=== PATIENT | female | born 1930 | race Caucasian/White ===

== ENCOUNTER 2016-12-12 12:14 | Inpatient (IN) | payer MEDICARE, BC ==
[~2016-12-12] VITALS: Ht 172.7 cm; Wt 72.6 kg
[~2016-12-12 12:14] MED LIST: BENADRYL INJ50 MG/ML PO; CALMOSEPTINE OI71 GM TOPICAL; CEPACOL SORE T1 EAC3 MM; CORDARONE200 MG PO; COUMADIN2 MG PO; COUMADIN5 MG PO; DENAVIR1.5 GM TP; DILAUD1MGAMP IV; DULCOLAX10 MG/SUPP RC; HYDROCODON-ACE1 EAC7 PO; LOVENOX40 MG/0.4 SQ; MIRALAX17 GM PO; NARCAN0.4 MG/ML IV; PHENERGAN25 MG/ML IM; POTASSIUM CHLOR8 ME1 PO; RESTORIL7.5 MG PO; SENOKOT-S TABLE1 TAB PO; SYNTHROID25 MCG PO; ULTRAM50 MG PO
[2016-12-12 13:22] LABS: BASOPHILS 0.1 % (0.0-2.0); EOSINOPHILS 0 % (0-7); HEMATOCRIT 30.9 % (36.0-48.0); HEMOGLOBIN 10.4 g/dL (12-16); IMMATURE GRANULOCYTES 0.4 % (0-5); LYMPHOCYTES 3.8 % (15-50); MCH 30.9 pg (26.0-34.0); MCHC 33.7 g/dL (31.0-37.0); MCV 91.7 fL (80.0-100.0); MEAN PLATELET VOLUME 10.6 fL (7.4-10.4); MONOCYTES 10.4 % (2-11); NEUTROPHILS 85.3 % (40-80); RBC 3.37 10x6/uL (4.00-5.40); WBC 9.4 10x3/uL (4.8-10.8)
[2016-12-12 13:24] LABS: PLATELET COUNT 254 10x3/uL (130-400)
[2016-12-12 13:35] LABS: ALBUMIN 2.4 g/dL (3.4-5.0); ANION GAP 10.6 mmol/L (8-16); BILIRUBIN - TOTAL 1.2 mg/dL (0.2-1.3); CALCIUM 8.3 mg/dL (8.5-10.1); CARBON DIOXIDE 26.7 mmol/L (21.0-32.0); POTASSIUM - SERUM 4.3 mmol/L (3.5-5.1); PROTEIN - SERUM 6.4 g/dL (6.4-8.2)
[2016-12-12 14:52] LABS: INR 3.18 (0.85-1.17); PROTIME 32.9 SECONDS (11.6-15.0)
--- NOTE | 2016-12-12 15:34 | NUR ---
Patient Name: ARTEMIO TAYLOR Admission Status: ER Accout number: [id number] Admission Date: 12-12-2016 : 1929 Admission Diagnosis: fall with fracture Attending: JEANA Current LOS: 1 Anticipated DC Date: 05/15/17 Planned Disposition: Rehab (lives alone, bedbound, cg's at time) Primary Insurance: MEDICARE A & B Discharge Planning Comments: CM met with patient to discuss dc plans/needs. Patient gave consent to complete assessment. Patient reports she is bed bound and lives at home with her son. Her son works and is not home all the time and sometimes not there. She reports she has caregivers (mother and daughter team) that comes to her home to assist her. She could not clearly tell cm when the cg's are there and how much she is left alone. She stated she is not able to stand on her own and wears a diaper until someone comes to change her. Patient clean with no odor. Appears to be well cared for. She did have a fall with a fracture. Unsure if she was home alone at the time. Asked patient and she could not understand my question. CM will continue to follow and assist as needed with dc plans/needs. Automatic Spinning Lathe Operator: Deidra Griffin Is the patient Alert and Oriented? Yes * How many steps to enter\exit or inside your home? 2 * PCP Dr. Wei - hasn't seen in a while according to the patient. * [facility] [address] * Preadmission Environment Home with Family * ADLs Partial Dependent * Partial ADLs (Assistance needed) Ambulation Bathing Dressing Toileting Transfers * Equipment Rolling Walker Wheelchair * Other Equipment Patient very hard of hearing. * List name and contact numbers for known caregivers / representatives who currently or will assist patient after discharge: Lonnie Taylor - son - [phone] * Community resources currently utilized [facility] * Please name any agencies selected above. Has caregivers over the weekend. Her son lives with her but works and is not always there. No clear answer on how often cg's come. Patient with difficulty understanding CM's questions. * Additional services required to return to the preadmission environment? Yes * Can the patient safely return to the preadmission environment? Yes * Has this patient been hospitalized within the prior 30 days at any hospital? No
[2016-12-12 19:42] LABS: APPEARANCE HAZY (CLEAR); BILIRUBIN NEGATIVE (NEGATIVE); COLOR DK YELLOW (YELLOW); GLUCOSE NEGATIVE (NEGATIVE); KETONE NEGATIVE (NEGATIVE); LEUKOCYTE ESTERASE 1+ (NEGATIVE); NITRITE NEGATIVE (NEGATIVE); PROTEIN NEGATIVE (NEGATIVE); UROBILINOGEN NORMAL (NORMAL)
[2016-12-12 19:49] LABS: AMORPHOUS SEDIMENT <1+ /lpf (NONE SEEN); BACTERIA MANY /hpf (NONE SEEN); GRANULAR CAST OCC /lpf (NONE SEEN); HYALINE CAST 0-5 /lpf (NONE SEEN); MUCUS >1+ /lpf (NONE SEEN); WHITE CELLS - URINE >50 /hpf (0-5)
--- NOTE | 2016-12-12 19:55 | NUR ---
RECIEVED PATIENT TO FLOOR, STARTED IV FLUIDS PER ORDERS GAVE MORPHINE ORDERED. INSERTED STRANGE USING STERILE PROCEDURE, SHANTANU URINE RETURN. WILL CONTINUE TO MONITOR. NO SIGNS OF DISTRESS
[2016-12-12 20:00] VITALS: BP 132/69
--- NOTE | 2016-12-12 20:15 | NUR ---
ASSESSMENT PER ADMIT PACKET IV PATENT RT ARM SALINE LOCK PT TO HAVE CT SCAN. MULTIPLE BRUISES AND SKIN TEARS NOTED ON BODY FX RT TIBIA. 4+ EDEMA TO BOTH LOWER EXTREMITIES. TO RADIOLOGY PER BED FOR CT SCAN. O2 ON 2L/M PER NC.STRANGE TO BS DRAINAGE WITH SHANTANU COLORED UA NOTED.
--- NOTE | 2016-12-12 21:00 | NUR ---
RETURNED TO ROOM POST CT SCAN. IV FLUIDS OF NS AT 75CC'S/HR CONNECTED TO IV SITE. PT REPOSITIONED IN BED PT CONFUSED AND TRYING TO PULL GOWN OFF AND O2 OFF. ATTEMPT TO RE ORIENT PT TO PLACE AND SURROUNDINGS.
--- NOTE | 2016-12-12 22:00 | NUR ---
MEDS GIVEN PER MAR.
[2016-12-12 22:02] VITALS: BP 118/93; BMI 24.3
[2016-12-12 22:11] VITALS: BP 106/62
--- NOTE | 2016-12-13 | NUR ---
EYES CLOSED RESPIRATIONS WITH EASE AND UNLABORED.
[2016-12-13 02:59] VITALS: BP 96/47
--- NOTE | 2016-12-13 04:45 | NUR ---
EYES CLOSED RESPIRATIONS WITH EASE AND UNLABORED.
[2016-12-13 06:14] LABS: BASOPHILS 0.1 % (0.0-2.0); EOSINOPHILS 0 % (0-7); IMMATURE GRANULOCYTES 0.3 % (0-5); LYMPHOCYTES 7.4 % (15-50); MCH 31.7 pg (26.0-34.0); MCHC 34.6 g/dL (31.0-37.0); MCV 91.7 fL (80.0-100.0); MEAN PLATELET VOLUME 10.4 fL (7.4-10.4); MONOCYTES 15.3 % (2-11); NEUTROPHILS 76.9 % (40-80); RDW 16.2 % (11.5-14.5); WBC 7.9 10x3/uL (4.8-10.8)
[2016-12-13 06:20] LABS: HEMATOCRIT 23.1 % (36.0-48.0); PLATELET COUNT 142 10x3/uL (130-400); RBC 2.52 10x6/uL (4.00-5.40)
[2016-12-13 06:27] LABS: PROTIME 38.1 SECONDS (11.6-15.0)
[2016-12-13 06:28] LABS: INR 3.82 (0.85-1.17)
[2016-12-13 06:44] LABS: ANION GAP 10.8 mmol/L (8-16); CALCIUM 7.6 mg/dL (8.5-10.1); CREATININE - SERUM 1.2 mg/dL (0.6-1.3); POTASSIUM - SERUM 4.8 mmol/L (3.5-5.1)
--- NOTE | 2016-12-13 07:40 | NUR ---
REPORT RECEIVED. CALL LIGHT IN REACH.
--- NOTE | 2016-12-13 08:02 | NUR ---
PATIENT IN BED WITH EYES OPEN NO COMPLAINTS AT THIS TIME. IV INTACT. CALL LIGHT WITHIN REACH.
--- NOTE | 2016-12-13 08:05 | NUR ---
ASSESSMENT COMPLETED. BED ALARM ON. CALL LIGHT IN REACH. WILL CONTINUE WITH PLAN OF CARE.
[2016-12-13 08:42] VITALS: BP 110/55
--- NOTE | 2016-12-13 09:15 | NUR ---
TO OR VIA BED.
--- NOTE | 2016-12-13 10:22 | NUR ---
PT SPOKE TO SON PRIOR TO SURGERY TWICE. SON GAVE PERMISSION ON THE PHONE FOR THE SURGERY THEN SPOKE AT LENGTH TO DR. JOSE REGARDING THE PROCEEDURE AND EXPECTATIONS. STATED HE WOULD BE AT THE HOSPITAL IN A VERY SHORT TIME.
[2016-12-13 11:40] VITALS: BP 92/67
--- NOTE | 2016-12-13 11:40 | NUR ---
RECEIVED BACK TO ROOM 2232 FROM RECOVERY ROOM VIA BED. PRBC INFUSING. VSS. BED ALARM ON. CALL LIGHT IN REACH.
--- NOTE | 2016-12-13 13:05 | NUR ---
SON AT BEDSIDE. NO NEEDS VOICED AT THIS TIME. CALL LIGHT IN REACH.
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
--- NOTE | 2016-12-13 16:30 | NUR ---
RESTING WITH EYES CLOSED. RESP EVEN AND UNLABORED. CALL LIGHT IN REACH.
[2016-12-13 16:53] LABS: BASOPHILS 0.2 % (0.0-2.0); EOSINOPHILS 0 % (0-7); IMMATURE GRANULOCYTES 0.2 % (0-5); LYMPHOCYTES 6.2 % (15-50); MCH 31.4 pg (26.0-34.0); MCHC 34.4 g/dL (31.0-37.0); MCV 91.2 fL (80.0-100.0); MEAN PLATELET VOLUME 10.6 fL (7.4-10.4); MONOCYTES 12.2 % (2-11); NEUTROPHILS 81.2 % (40-80); PLATELET COUNT 157 10x3/uL (130-400); RDW 16.6 % (11.5-14.5)
[2016-12-13 16:55] LABS: HEMATOCRIT 30.2 % (36.0-48.0); HEMOGLOBIN 10.4 g/dL (12-16); RBC 3.31 10x6/uL (4.00-5.40); WBC 9.9 10x3/uL (4.8-10.8)
--- NOTE | 2016-12-13 19:40 | NUR ---
ASSESSMENT COMPLETED, EXTERNAL FIXATOR IN PLACE TO R LEG, WRAPPED WITH ELY, STRANGE DRAINING TO GRAVITY, NC IN PLACE, NO ACUTE DISTRESS NOTED, SON IN ROOM, SR'S UP, CL IN REACH, WILL MONITOR
[2016-12-13 20:30] VITALS: BP 113/63
--- NOTE | 2016-12-13 20:46 | NUR ---
PT RESTING WITH EYES CLOSED, AROUSED FOR CALMOSEPTINE APPLICATION, PT REFUSED, IMMEDIATELY WENT BACK TO SLEEP, RESTORIL HELD AT THIS TIME, FALL PRECAUTIONS IN PLACE, CL IN REACH, WILL MONITOR
--- NOTE | 2016-12-13 23:03 | NUR ---
CONTINUES TO REST WITH EYES CLOSED, RESP WITH EASE, NO ACUTE DISTRESS NOTED, FALL PRECAUTIONS IN PLACE, CL IN REACH, DOOR OPEN FOR EASY OBSERVATION
[2016-12-14 01:00] VITALS: BP 122/60
--- NOTE | 2016-12-14 03:15 | NUR ---
MORPHINE GIVEN PER JAN FOR R LEG PAIN, RODERICK WELL, WILL MONITOR
--- NOTE | 2016-12-14 03:40 | NUR ---
PT REPOSITIONED IN BED, LINEN AND GOWN CHANGED DUE TO BLOOD AND URINE SATURATION, STRANGE PLACEMENT CHECKED, URINE FLOWING IN TUBE, BALLOON WITH 10CC FLUID, PT UNCOOPERATIVE AND CONFUSED, ATTEMPTED REORIENTATION WITH NO SUCCESS,SAFETY MEASURES IN PLACE WILL MONITOR
[2016-12-14 05:30] VITALS: BP 101/50
--- NOTE | 2016-12-14 05:31 | NUR ---
REFUSED MEDICATION, PT VERY COMBATIVE AND CONFUSED, SON CONTACTED, STATES HE WILL BE HERE NO LATER THAN NOON TODAY, SAFETY PRECAUTIONS IN PLACE, CL IN REACH, WILL CONTINUE TO MONITOR
--- NOTE | 2016-12-14 08:00 | NUR ---
ASSESSMENT PER FLOW SHEET.PT WITHOUT DISTRESS.CALL LIGHT IN REACH
[2016-12-14 08:39] VITALS: BP 124/50
--- NOTE | 2016-12-14 10:00 | NUR ---
REPOSITIONED,PAD CHANGE UNDER LEFT LEG.BLEEDING NOTED.ICE PACKS PLACED ON EACH SIDE OF LEG.FALL PRECAUTIONS IN PLACE.MONITOR
--- NOTE | 2016-12-14 12:30 | NUR ---
EATING LUNCH WITHOUT DISTRESS
[2016-12-14 12:48] VITALS: BP 88/53
[2016-12-14 14:14] LABS: INR 2.73 (0.85-1.17); PROTIME 29.1 SECONDS (11.6-15.0)
[2016-12-14 15:39] VITALS: Ht 172.7 cm; Wt 72.6 kg
--- NOTE | 2016-12-14 16:01 | NUR ---
CM REASSESSMENT NOTE: CM CALLED PATIENTS SON (MARY) REGARDING D/C NEEDS AND PLANS. MARY STATED HE LIVES WITH HIS MOTHER AND SHE IS CURRENT WITH [employer] [facility], HOUSE CALLS, AND HAS PRIVATE CAREGIVERS 3 DAYS A WEEK. JENNIFER STATED HE WORKS [employer]RI[employer], AND SUN AND THAT IS WHEN THE CAREGIVERS ARE WITH HER. THEY GIVE HER A BATH AT THAT TIME PER SON. CM WILL CONTINUE TO FOLLOW PATIENT WITH D/C NEEDS AND PLANS.
[2016-12-14 16:46] VITALS: BP 147/75
--- NOTE | 2016-12-14 17:02 | NUR ---
RESTING BETTER THIS AFTERNOON.MONITOR
--- NOTE | 2016-12-14 19:50 | NUR ---
ASSESSMENT COMPLETED, NO ACUTE DISTRESS NOTED, EXTERNAL FIXATOR IN PLACE TO R LEG, SR'S UP, BED ALARM ON , CL IN REACH, DOOR OPEN FOR EASY MONITORING,
--- NOTE | 2016-12-14 20:34 | NUR ---
MEDS GIVEN PER MAR, RODERICK WELL, SAFETY PRECAUTIONS IN PLACE, CL IN REACH
[2016-12-14 23:00] VITALS: BP 103/49
--- NOTE | 2016-12-14 23:39 | NUR ---
LYING IN BED AWAKE, NO ACUTE DISTRESS NOTED, SAFETY MEASURES IN PLACE, WILL CONTINUE TO MONITOR
[2016-12-15 00:23] VITALS: BP 114/55
[2016-12-15 03:00] VITALS: BP 93/53
--- NOTE | 2016-12-15 03:14 | NUR ---
FLUIDS HUNG PER MAR, RODERICK WELL, NO DISTRESS NOTED, SAFETY MEASURES IN PLACE
[2016-12-15 05:11] LABS: BASOPHILS 0.1 % (0.0-2.0); EOSINOPHILS 0.4 % (0-7); HEMATOCRIT 30.6 % (36.0-48.0); HEMOGLOBIN 10.5 g/dL (12-16); IMMATURE GRANULOCYTES 0.3 % (0-5); LYMPHOCYTES 6.1 % (15-50); MCH 31.3 pg (26.0-34.0); MCHC 34.3 g/dL (31.0-37.0); MCV 91.1 fL (80.0-100.0); MEAN PLATELET VOLUME 10.5 fL (7.4-10.4); MONOCYTES 9.6 % (2-11); NEUTROPHILS 83.5 % (40-80); PLATELET COUNT 185 10x3/uL (130-400); RBC 3.36 10x6/uL (4.00-5.40); RDW 15.9 % (11.5-14.5); WBC 11.2 10x3/uL (4.8-10.8)
[2016-12-15 05:34] LABS: PROTIME 24.3 SECONDS (11.6-15.0)
[2016-12-15 05:41] LABS: ANION GAP 9.4 mmol/L (8-16); CALCIUM 7.7 mg/dL (8.5-10.1); CARBON DIOXIDE 24.7 mmol/L (21.0-32.0); CREATININE - SERUM 1.4 mg/dL (0.6-1.3); POTASSIUM - SERUM 4.1 mmol/L (3.5-5.1)
[2016-12-15 05:42] LABS: INR 2.18 (0.85-1.17)
[2016-12-15 08:41] VITALS: BP 85/50
--- NOTE | 2016-12-15 09:30 | NUR ---
ASSESSMENT PER FLOW SHEET.PT WITHOUT DISTRESS.SOME BLOOD NOTED ON DRESSING TO RIGHT LEG.PT WITHOUT DISTRESS.MONITOR
[2016-12-15 12:31] VITALS: BP 88/51
[2016-12-15 16:27] VITALS: BP 104/55
--- NOTE | 2016-12-15 18:20 | NUR ---
HAS RESTED THROUGHOUT DAY.SHE HAS CONTINUED TO HAVE SMALL AMOUNTS OF BLOOD ON DRESSING.SHE IS NOW EATING DINNER FOR SON.SHE REMAINS WITHOUT CHANGE.CONT PLAN OF CARE
--- NOTE | 2016-12-15 18:35 | NUR ---
CONSENTS TO CHART ORDERED.HER SON JARRELL ROJAS AGREES TO SURGERY
--- NOTE | 2016-12-15 20:00 | NUR ---
ASSESSMENT COMPLETED, NO ACUTE DISTRESS NOTED, FIXATOR IN PLACE TO R LEG, SAFETY PRECAUTIONS IN PLACE, WILL MONITOR
--- NOTE | 2016-12-15 21:11 | NUR ---
MEDS GIVEN PER MAR, RODERICK WELL, SAFETY PRECAUTIONS IN PLACE, CL IN PLACE, WILL MONITOR
[2016-12-15 21:14] VITALS: BP 112/61
--- NOTE | 2016-12-15 23:20 | NUR ---
FLUIDS HUNG PER MAR, RODERICK WELL, WILL CONTINUE TO MONITOR
[2016-12-16] VITALS (15 sets, daily range): BP systolic 72–99; BP diastolic 39–80
--- NOTE | 2016-12-16 01:53 | NUR ---
SITTING UP IN BED PLAYING WITH GOWN, NO ACUTE DISTRESS NOTED, SAFETY MEASURES IN PLACE
--- NOTE | 2016-12-16 03:50 | NUR ---
PT CONTINUES TO BE AWAKE, NO DISTRESS NOTED, WILL CONTINUE TO MONITOR
[2016-12-16 06:08] LABS: BASOPHILS 0.1 % (0.0-2.0); EOSINOPHILS 0.6 % (0-7); HEMOGLOBIN 10.2 g/dL (12-16); IMMATURE GRANULOCYTES 0.2 % (0-5); LYMPHOCYTES 6.1 % (15-50); MCH 31.1 pg (26.0-34.0); MCV 91.5 fL (80.0-100.0); MEAN PLATELET VOLUME 10.9 fL (7.4-10.4); MONOCYTES 11.3 % (2-11); NEUTROPHILS 81.7 % (40-80); PLATELET COUNT 199 10x3/uL (130-400); RBC 3.28 10x6/uL (4.00-5.40); RDW 15.8 % (11.5-14.5); WBC 9.7 10x3/uL (4.8-10.8)
--- NOTE | 2016-12-16 06:08 | NUR ---
PT TAKEN TO SURGERY VIA STRETCHER
[2016-12-16 06:19] LABS: INR 2.03 (0.85-1.17)
[2016-12-16 06:21] LABS: ANION GAP 12.3 mmol/L (8-16); CALCIUM 8.1 mg/dL (8.5-10.1); CARBON DIOXIDE 21.6 mmol/L (21.0-32.0); CREATININE - SERUM 1.2 mg/dL (0.6-1.3); POTASSIUM - SERUM 3.9 mmol/L (3.5-5.1)
--- NOTE | 2016-12-16 07:00 | OP ---
PATIENT NAME: ARTEMIO RICH MEDICAL RECORD: [id number] :29 LOCATION:[id number] ADMISSION DATE:12/12/16 SURGEON: IRVING RANGEL MD DATE OF OPERATION: 12/13/2016 PREOPERATIVE DIAGNOSES: 1. Comminuted proximal tibia fracture. 2. Compartment syndrome. POSTOPERATIVE DIAGNOSES: 1. Comminuted proximal tibia fracture. 2. Compartment syndrome. PROCEDURE PERFORMED: Right lower extremity ex-fixator spanning from the femur to the tibia using Sergio's Karolyn II system and then fasciotomy. SURGEON: John Rangel MD ANESTHESIA: General. CONDITION: She tolerated the procedure well and was transferred to the recovery room in stable condition. INDICATIONS: This is an 86-year-old female that apparently fell yesterday, presented to the Emergency Room, had a significant proximal tibia fracture. She also has had Coumadin on board with significantly high INR. She was admitted by Dr. Long, evaluated and felt that she needed to come to the operating room for ex-fix and fasciotomies. At arrival to the operating room, the patient refused treatment of the physician. I was called emergently to come in. I had very little opportunity to speak with the patient as she did give some history. I did speak with her son on the phone discussing the risks of this including the risk that she had a relatively high risk for an amputation of this leg. Also, discussed the significant risks associated with this having the elevated INR and the Coumadin on board. Additionally, of note, I did speak with Dr. Garza for further opinion in light of the fact that I was brought into this at such a late juncture. OPERATIVE REPORT: The patient was taken to the operating room and placed in supine position. General anesthesia was obtained. She did receive Ancef per protocol. Once she was then prepped and draped, I made 2 small stab incisions in her distal thigh, 2 small stab incisions in her tibia and placed a spanning external fixator using the Karolyn II system by Sergio. I placed 2 apex pins proximally, 2 apex pins distally, 2 clamps with a straight posts on each side and then clamped this into position. This overall gave decent reduction to the fracture, although the fracture is bicondylar fracture significantly comminuted and a knee that is already significantly degenerative. Once this was accomplished, I then made small fasciotomies on each side of her leg; taking this down under the skin with my finger, as well as scissors and making sure that all 4 compartments were opened. They did not give the general appearance of being excessively tight. I did not want to make full fasciotomies as I was not under the impression in the operating room that the compartments were just at a super taut point. Therefore, I made a conservative fasciotomies. These were then packed with some 2 inch Kerlix, then a loose dressing was placed. She was awakened and transferred to the recovery room in stable condition. She had some heart concerns. We did not want to prolong the stay in the operating room. OPERATIVE REPORT [id number] ARTEMIO RICH TRANSINT:[id number] Voice Confirmation ID: [id number] DOCUMENT ID: [id number] IRVING RANGEL MD at 0700 CC: [id number] DICTATION DATE: 12/13/16 1048 INFECTION PREVENTION COORDINATOR: 12/13/16 1142 ADM IN [place] [id number] [place] [address]
--- NOTE | 2016-12-16 09:19 | NUR ---
125CC OF DARK YELLOW URINE IN BAG ON ADMIT TO RR
--- NOTE | 2016-12-16 09:59 | NUR ---
OK TO TRANSPORT TO FLOOR PER ANESTHESIA
--- NOTE | 2016-12-16 10:30 | NUR ---
BACK FROM OR VIA BED,DRESSING TO RIGHT STUMP CLEAN,DRY AND INTACT.SEE GRAPHICS FOR VITAL SIGNS.ASSESSMENT PER FLOW SHEET.MONITOR.SON AT SIDE
--- NOTE | 2016-12-16 11:01 | NUR ---
CALL TO RECOVERY,SPOKE WITH RADHA. WENDY... BP 74/45
--- NOTE | 2016-12-16 11:15 | NUR ---
ANESTHESIA TO SEE PT,ORDERS RECIEVED AND INITIATED
--- NOTE | 2016-12-16 13:26 | NUR ---
NUTRITION MONITORING & EVAL CHART REVIEWED, PT VISIT. REG DIET. POOR PO INTAKE EVEN WITH MANAGER PSYCHIATRY ASSIST/FEEDING AND ENCOURAGEMENT. DECLINES ENSURE AT THIS TIME. RD FOLLOWING
--- NOTE | 2016-12-16 14:12 | NUR ---
NUTRITION MONITORING & EVAL REVISITED PT. ASSISTED WITH ADDITIONAL PO INTAKE. PROVIDED PIE, ENSURE, APPLESAUCE, PUDDING. PT UNABLE TO CHEW REG FOODS. WILL CHANGE DIET TO PUREED WITH REG LIQUIDS. RD FOLLOWING
--- NOTE | 2016-12-16 15:20 | NUR ---
BP STAYING IN 90'S NOW.PT MORE ALERT AND TALKING WITH HER SON.PERIODS OF CONFUSION AT TIMES.MONITOR
--- NOTE | 2016-12-16 16:22 | NUR ---
PAGE TO RE.. BP STARTING TO GO LOWER 80/45,77/51,86/59
--- NOTE | 2016-12-16 16:25 | NUR ---
CALL TO OFFICE...RE LOW BP 77/51
--- NOTE | 2016-12-16 16:35 | NUR ---
ORDERS RECIEVED AND INITIATED PER
[2016-12-16 18:26] LABS: BASOPHILS 0.1 % (0.0-2.0); EOSINOPHILS 0.4 % (0-7); HEMATOCRIT 24.6 % (36.0-48.0); HEMOGLOBIN 8.3 g/dL (12-16); IMMATURE GRANULOCYTES 0.3 % (0-5); LYMPHOCYTES 6.7 % (15-50); MCH 31.4 pg (26.0-34.0); MCHC 33.7 g/dL (31.0-37.0); MCV 93.2 fL (80.0-100.0); MEAN PLATELET VOLUME 10.6 fL (7.4-10.4); MONOCYTES 9.9 % (2-11); NEUTROPHILS 82.6 % (40-80); PLATELET COUNT 162 10x3/uL (130-400); RBC 2.64 10x6/uL (4.00-5.40); WBC 7.8 10x3/uL (4.8-10.8)
--- NOTE | 2016-12-16 19:41 | NUR ---
REMAINS WITHOUT NEEDS,WITHOUT DISTRESS.CONT PLAN OF CARE
--- NOTE | 2016-12-16 23:11 | NUR ---
1ST UNIT OF PRBC INFUSING AT THIS TIME VITALS WILL BE MONITORED PT LAYING IN BED NO DISTRESS OBSERVED CALL LIGHTI NR EACH SRX2 BED LOW AND LOCKED LEFT HEEL BRIDGED AND TV IS ON WATER AND ICE PROVIDED TO PT AT PT REQUEST WILL MONITOR
--- NOTE | 2016-12-17 01:55 | NUR ---
PT RECIVED 20MG LASIX PER DR TORRES INBETWEEN UNITS OF PRBC PT TOLERATED 1ST UNIT WELL NO DISTRESS OBSERVED OR NOTED AT THIS TIME WILL MONITOR
--- NOTE | 2016-12-17 05:21 | NUR ---
PT RECIVED 2 UNITS PRBC THIS SHIFT AND PT C/O PAIN ADMIN PAIN MEDS ORDERED AND IVF RESTARTED TO IVP. PT APPERS TO BE CONFUSED AND TALKING ABOUT LEAVING THROUGH BACK DOOR AND THAT EVERYONE WILL BE GONE THIS AFTERNOON DRESSING TO RIGHT STUMP INTACT AND MINNIMAL DRAINAGE OBSERVED WILL MONITOR
[2016-12-17 05:36] LABS: BASOPHILS 0.1 % (0.0-2.0); EOSINOPHILS 0.3 % (0-7); HEMATOCRIT 32.3 % (36.0-48.0); IMMATURE GRANULOCYTES 0.2 % (0-5); LYMPHOCYTES 3.6 % (15-50); MCH 30.3 pg (26.0-34.0); MCHC 34.1 g/dL (31.0-37.0); MEAN PLATELET VOLUME 10.7 fL (7.4-10.4); MONOCYTES 12.4 % (2-11); NEUTROPHILS 83.4 % (40-80); PLATELET COUNT 160 10x3/uL (130-400); RBC 3.63 10x6/uL (4.00-5.40)
[2016-12-17 05:52] LABS: INR 1.94 (0.85-1.17); PROTIME 22.2 SECONDS (11.6-15.0)
[2016-12-17 05:56] LABS: ANION GAP 11.6 mmol/L (8-16); CALCIUM 7.8 mg/dL (8.5-10.1); CARBON DIOXIDE 23.3 mmol/L (21.0-32.0); CREATININE - SERUM 1.1 mg/dL (0.6-1.3); POTASSIUM - SERUM 3.9 mmol/L (3.5-5.1)
[2016-12-17 08:11] VITALS: BP 121/100
--- NOTE | 2016-12-17 08:27 | NUR ---
PT ASSESSMENT COMPLETE PT AWAKE AND CONFUSED YELLING OUT FOR NILSA AND REPEATING HER SONS PHONE NUMBER STATING PLEASE CALL [phone] TO R STUMP SURGICAL SITE. CALL LIGHT IN REACH SIDE RAILS UP X 2 BED ALARM ON
--- NOTE | 2016-12-17 10:49 | NUR ---
PT GIVEN NORCO PER ORDER PER COMPLAINT OF PAIN TO INCISION SITE PT REMAINS EXTREMLY CONFUSED AND REFSES TO EAT BREAKFAST SPOKE WITH SON BOB STATED HE WILL COME TO SEE PT THIS DAY
[2016-12-17 11:40] VITALS: BP 82/56
[2016-12-17 15:28] LABS: APPEARANCE CLEAR (CLEAR); BACTERIA FEW /hpf (NONE SEEN); BILIRUBIN NEGATIVE (NEGATIVE); COLOR YELLOW (YELLOW); EPITHELIAL CELLS 0-5 /hpf (0-5); GLUCOSE NEGATIVE (NEGATIVE); KETONE NEGATIVE (NEGATIVE); LEUKOCYTE ESTERASE TRACE (NEGATIVE); MUCUS <1+ /lpf (NONE SEEN); NITRITE NEGATIVE (NEGATIVE); PROTEIN NEGATIVE (NEGATIVE); RED CELLS - URINE 0-5 /hpf (0-5); UROBILINOGEN NORMAL (NORMAL); YEAST >1+ WITH HYPHAE /hpf (NONE SEEN)
[2016-12-17 16:13] VITALS: BP 99/57
--- NOTE | 2016-12-17 16:25 | NUR ---
PATIENT IN BED WITH IV INTACT. NO COMPLAINTS. FAMILY AT BEDSIDE. CALL LIGHT WITHIN REACH.
--- NOTE | 2016-12-17 17:30 | NUR ---
PT MORE ALERT THIS AFTERNOON WITH SON PRESENT CONFUSION IS LESS HAS SEVERE EXCORIATION NOTED TREATED WITH BUDREAUX BUTT PASTE.
[2016-12-17 21:00] VITALS: BP 135/73
[2016-12-18 00:30] VITALS: BP 104/59
[2016-12-18 05:00] VITALS: BP 92/63
[2016-12-18 05:53] LABS: BASOPHILS 0.1 % (0.0-2.0); EOSINOPHILS 0.9 % (0-7); HEMOGLOBIN 11.3 g/dL (12-16); IMMATURE GRANULOCYTES 0.2 % (0-5); LYMPHOCYTES 7.2 % (15-50); MCH 30.3 pg (26.0-34.0); MCHC 34.2 g/dL (31.0-37.0); MCV 88.5 fL (80.0-100.0); MEAN PLATELET VOLUME 10.7 fL (7.4-10.4); MONOCYTES 9.4 % (2-11); NEUTROPHILS 82.2 % (40-80); RBC 3.73 10x6/uL (4.00-5.40); RDW 18.4 % (11.5-14.5)
[2016-12-18 06:00] LABS: PLATELET COUNT 197 10x3/uL (130-400); WBC 12.3 10x3/uL (4.8-10.8)
[2016-12-18 06:25] LABS: CARBON DIOXIDE 22.2 mmol/L (21.0-32.0); CREATININE - SERUM 1.1 mg/dL (0.6-1.3); POTASSIUM - SERUM 4.2 mmol/L (3.5-5.1)
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
[2016-12-18 08:03] VITALS: BP 108/64
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
--- NOTE | 2016-12-18 10:20 | NUR ---
Rehab Note- Rehab Prescreen Order received. The patient is a new AKA, awaiting Physical therapy assessment for patient's PLOF. Will follow at this time. Thank you for this referral! Erma Ponce RN Clinical Liaison, Rehab Care/[facility]
--- NOTE | 2016-12-18 10:43 | NUR ---
STAGE TWO PRESSURE UCLER SEEN TO BUTTOCK/COCCYX AREA MEASURING 6CM X 8CM. MEPILEX APPLIED AND DATED. PT TURNED ON SIDE.
[2016-12-18 12:02] VITALS: BP 110/53
--- NOTE | 2016-12-18 12:17 | NUR ---
Rehab Prescreening Consult recieved and the patient was visited. According to the notes it says she is bed confined. The INTERPRETER TRANSLATOR at the bedside says she screams out with in pain with any movement and becomes combative. At this point she is not appropriate for inpatient rehab. The CM Krysten Abbasi has been made aware. Ngoc Lamar RN Clinical Liaison, Rehab
--- NOTE | 2016-12-18 12:21 | NUR ---
PT LAYING ON LEFT SIDE WITH EYES CLOSED RESTING. WILL CONTINUE TO MONITOR.
--- NOTE | 2016-12-18 12:32 | NUR ---
1000- 4X4 GUAZE PADS PLACED ON PTS LEFT LOWER LEG, WRAPPED WITH KERLIX AND SECURED WITH TAP.
[2016-12-18 16:14] VITALS: BP 108/65
--- NOTE | 2016-12-18 16:30 | NUR ---
PT IS VERY COMBATIVE AND AGGRESSIVE TOWARDS ME. PT IS STATED THAT THE BEDSIDE TABLE IS ON HER LEG AND ITS HURTING. INFORMED PT THAT THE BEDSIDE TABLE IS NO WHERE NEAR HER LEGS AND IS NOT TOUCHING HER. 1630- PAGED DR. TORRES, INFORMED HIM OF PT SITUAION. NEW ORDERS RECEIVED. WILL CONTINUE TO MONITOR.
--- NOTE | 2016-12-18 17:50 | NUR ---
PTS CAREGIVER IN ROOM WITH PT NOW. CAREGIVER STATED PT WAS TRYING TO HIT HER. PT KEEPS C/O NC NOT BEING IN PTS NOSE. ADJUSTED PTS NC AROUND EARS AND INFORMED PT THAT HER NC WAS IN HER NARES AND HER O2 WAS GOING AT 2L.
--- NOTE | 2016-12-18 17:51 | NUR ---
1730- MOUSTAPHA, PLUG CUTTING MACHINE OPERATOR IN ROOM WITH PT. MOUSTAPHA CALLED RESP TO SEE ABOUT PTS BREATHING AND MAYBE GETTING A OXIMIZER FOR MORE COMFORT. 1740- RESP INFORMED ME THAT PTS O2 SAT WAS GOOD AND NO INTERVENTION WAS NEEDED AT THIS TIME. WILL CONTINUE TO MONITOR.
--- NOTE | 2016-12-18 18:11 | NUR ---
PT SITTING UP IN BED TALKING TO CAREGIVER. CAREGIVER STATED TO ME THAT PTS SON WILL BE UP HERE SOMETIME TONIGHT (MAY BE LATE) TO SIT WITH HER. PTS CAREGIVER INFORMED ME THAT SHE NOTIFIED SON OF PT BEING COMBATIVE AND "NOT HER SELF". WILL CONTINUE TO MONITOR.
[2016-12-18 19:00] VITALS: BP 102/59
[2016-12-19 04:00] VITALS: BP 93/52
--- NOTE | 2016-12-19 04:13 | NUR ---
ASSESSED AT THE BEGINNNING OF THE SHIFT. SHE IS VERY CONFUSED AND AT TIMES SHE HAS BEEN COMBATIVE AND UNCOOPERATIVE. EARLY IN THE EVENING SHE RECEIVED HALDOL ORDERED PRN BUT IT DID NOT HAVE ANY EFFECT ON HER. SHE HAS A DRESSING TO HER RIGHT AKA AND ALSO TO HER LOWER LEFT LEG. SHE HAS NOT SLEPT BUT MAYBE 10 MINUTES DURING THE NIGHT. AT ABOUT 0145 HER SON CAME IN AFTER WORK AND HAS BEEN WITH HER SINCE THEN. HE STATED HE HAD TO WORK TODAY SO NOT SURE HOW LONG HE WILL STAY. SHE DID NOT KNOW HIM AT THE FIRST BUT THEN LATER KNEW WHO HE WAS. THE BED IS LOW, RAILS UP X'S 2 WITH A CALL LIGHT AT HAND AND BED ALARM IN PLACE.
[2016-12-19 06:07] LABS: BASOPHILS 0.2 % (0.0-2.0); EOSINOPHILS 0.9 % (0-7); HEMATOCRIT 32.4 % (36.0-48.0); IMMATURE GRANULOCYTES 0.4 % (0-5); LYMPHOCYTES 7.6 % (15-50); MCH 30.6 pg (26.0-34.0); MCV 90.3 fL (80.0-100.0); MEAN PLATELET VOLUME 11.1 fL (7.4-10.4); NEUTROPHILS 78.9 % (40-80); PLATELET COUNT 177 10x3/uL (130-400); RBC 3.59 10x6/uL (4.00-5.40); RDW 18.7 % (11.5-14.5)
[2016-12-19 06:30] LABS: ANION GAP 10.6 mmol/L (8-16); CALCIUM 7.6 mg/dL (8.5-10.1); CARBON DIOXIDE 22.6 mmol/L (21.0-32.0); CREATININE - SERUM 1.1 mg/dL (0.6-1.3); POTASSIUM - SERUM 4.2 mmol/L (3.5-5.1)
--- NOTE | 2016-12-19 07:00 | NUR ---
PT REC'D FROM CLAUDINE NUR. RESTING IN BED WITH EYES CLOSED. EASILY AROUSED. ALERT TO SELF ONLY. ATTEMPTS TO REORIENT UNSUCCESSFUL. DRESSING TO R STUMP HAS OLD DRY BLOOD ON IT. PT IS GRIMACING. WILL ADMINISTERED PAIN MEDS ORDERED. STRANGE CATHETER IN PLACE DRAINING CLEAR SHANTANU URINE TO GRAVITY. BED LOW, CALL LIGHT IN REACH, WILL CPOC.
[2016-12-19 08:55] VITALS: BP 126/67
--- NOTE | 2016-12-19 09:05 | NUR ---
MORNING MEDS PASSED. RECHECK OF FSBS READING 95. PT EATING BREAKFAST IN BED. PRN PAIN MEDICINE GIVEN PER PT GRIMACING AND STATING "IT HURTS." PT UNABLE TO GET A NUMBER ON NUMERICAL PAIN SCALE DUE TO PT CONFUSION. BED LOW, CALL LIGHT IN REACH, WILL CPOC.
--- NOTE | 2016-12-19 12:00 | NUR ---
PRN HALDOL ADMINISTERED PER AGGITATION DURING BED BATH.
--- NOTE | 2016-12-19 12:15 | NUR ---
FULL BED BATH AND LINEN CHANGE PROVIDED. DRESSING TO LLE CHANGED AND LEG ELEVATED. DRESSING TO COCCYX CDI. PT REPOSITIONED TO L SIDE. BED LOW, CALL LIGHT IN REACH, WILL CPOC.
[2016-12-19 13:04] VITALS: BP 134/83
--- NOTE | 2016-12-19 15:17 | NUR ---
LYING IN BED,WITHOUT DISTRESS.VISTOR AT BEDSIDE
[2016-12-19 16:03] VITALS: BP 123/72
[2016-12-19 20:38] VITALS: BP 114/70
--- NOTE | 2016-12-19 23:06 | NUR ---
PT ASSESSMENT COMPLETED PT LAYING IN BED PT APPERS TO BE CONFUSED TO PLACE, SITUATION, AND TIME. PT KEEPS STATING " I NEED TO GO TO [facility] AND BE THERE THEY NEED TO TAKE ME TO [facility] I HAVE A ROOM RESERVED THERE AND THAT IS WHERE I NEED TO BE NOT HERE AT [facility]" ATTEMPTED TO REORINAT PT TO PLACE AND PT DENIED BEING HERE AT [facility] PT INCREASINGLY BECAME ANXIOUS AND HALDOL ADMIN ORDERED WILL MONITOR PT AND ORINATE NEEDED BED LOW AND LOCKED CALL LIGHT IN REACH SRX2 BED ALARM ON AND WORKING
[2016-12-20] VITALS: BP 143/93
--- NOTE | 2016-12-20 01:21 | NUR ---
PT APPERS TO BE CONFUSED AT THIS TIME AND YELLING OUT PT REQUESTING ICE WATER AND WHEN PROVIDED TO PT PT POURS ICE WATER ON TO LAP. PT REORINATED TO SURROUNDINGS AND PT SEEMS TP CALM DOWN AND NOT YELL OUT WILL CONTINUE TO MONITOR PT AND ANXITY
[2016-12-20 04:00] VITALS: BP 112/65
--- NOTE | 2016-12-20 04:15 | NUR ---
PT LAYING IN BED APPERS TO BE SLEEPING AT THIS TIME RESPERATIONS EVEN AND UNLABORED WILL MONITOR
--- NOTE | 2016-12-20 07:05 | NUR ---
SLEEPING AT THIS TIME. POSITIONED ON LEFT SIDE WITH EYES CLOSED AND RESPIRATIONS EVEN AND NON LABORED. STRANGE PATENT AND DRAINING DARK, CONCENTRATED URINE TO GRAVITY. SCD OFF PER PT REFUSING. IV TO LEFT WRIST PATENT. BED ALARM ON AND IN WORKING ORDER. CALL LIGHT IN REACH, SRX2 WITH BED IN LOWEST POSITION AND WHEELS LOCKED. DOOR OPEN FOR PATIENT SAFETY. WILL CONTINUE WITH PLAN OF CARE.
[2016-12-20 09:00] VITALS: BP 114/62
--- NOTE | 2016-12-20 09:10 | NUR ---
SCHEDULED MEDICATIONS ADMINISTERED AT THIS TIME WELL PRN NORCO FOR PAIN. LINENS CHANGED AND CALMOSEPTINE CREAM APPLIED TO PT'S ABDOMINAL SKIN FOLD EXCORIATION AND BUTTOCK. HEART SHAPED MEPILEX APPLIED TO PT'S COCCYX. STRANGE CATHETER CARE PROVIDED WITH STRANGE CATHETER CARE WIPES. DRESSING TO LLE REMOVED D/T SOILAGE. LLE CLEANSED WITH NORMAL SALINE AND PAT DRY. ABD PADS X4 TO LLE AND WRAPPED LOOSELY IN KERLIX AND SECURED WITH METIPORE TAPE. POSITIONED ON RIGHT SIDE FOR COMFORT. CALL LIGHT IN REACH, BED ALARM ON AND SRX2 WITH BED IN LOWEST POSITION AND WHEELS LOCKED. DOOR OPEN FOR SAFETY. WILL CONTINUE WITH PLAN OF CARE.
--- NOTE | 2016-12-20 11:50 | NUR ---
POSITINED ON LEFT SIDE AT THIS TIME. PT REMAINS CLEAN AND DRY. CALL LIGHT IN REACH. BED IN LOWEST POSITION WITH SRX2 AND BED LOCKED. WILL CONTINUE WITH PLAN OF CARE.
[2016-12-20 12:45] VITALS: BP 120/70
[2016-12-20 16:28] VITALS: BP 108/70
[2016-12-20 19:00] VITALS: BP 130/73
--- NOTE | 2016-12-20 22:41 | NUR ---
PT LAYING IN BED NO DISTRESS OBSERVED CALL LIGHT IN REACH SRX2 BED LOW AND LOCKED BED ALARM ON AND WORKING. LEFT LEG CLUB FOOT AND SKIN IS TIGHT AND EDEMETAOUS CALL LIGHT IN REACH SRX2 BED LOW AND LOCKED WILL MONITOR
[2016-12-21 04:00] VITALS: BP 111/64
[2016-12-21 05:37] LABS: BASOPHILS 0.2 % (0.0-2.0); EOSINOPHILS 0.8 % (0-7); HEMATOCRIT 33.9 % (36.0-48.0); HEMOGLOBIN 11.5 g/dL (12-16); IMMATURE GRANULOCYTES 0.3 % (0-5); LYMPHOCYTES 6.8 % (15-50); MCH 30.6 pg (26.0-34.0); MCHC 33.9 g/dL (31.0-37.0); MCV 90.2 fL (80.0-100.0); MEAN PLATELET VOLUME 10.6 fL (7.4-10.4); MONOCYTES 10.1 % (2-11); NEUTROPHILS 81.8 % (40-80); RBC 3.76 10x6/uL (4.00-5.40); RDW 18.3 % (11.5-14.5); WBC 8.6 10x3/uL (4.8-10.8)
--- NOTE | 2016-12-21 05:41 | NUR ---
PT LAYING IN BED NO DISTRESS OBSERVED CALL LIGHT IN REACH SRX2 BED LOW AND LOCKED WILL MONITOR
[2016-12-21 05:54] LABS: ANION GAP 11.6 mmol/L (8-16); CALCIUM 7.9 mg/dL (8.5-10.1); CARBON DIOXIDE 21.6 mmol/L (21.0-32.0); CREATININE - SERUM 1.1 mg/dL (0.6-1.3); PLATELET COUNT 252 10x3/uL (130-400); POTASSIUM - SERUM 4.2 mmol/L (3.5-5.1)
--- NOTE | 2016-12-21 07:26 | NUR ---
PT LYING IN BED ON BACK. AWAKE, CONFUSED TO PLACE AND SITUATION. REORIENTED PT TO PLACE AND SITUATION. PT DENIES NEEDS AT THIS TIME. ASSESSMENT COMPLETED. BED LOW, PHONE AND CALL LIGHT IN REACH. SIDE RAILS UP X2.
--- NOTE | 2016-12-21 08:30 | NUR ---
PT SITTING UP IN BED. ADMINISTERED HYDROCODONE PO FOR PAIN 06/24.
[2016-12-21 08:59] VITALS: BP 138/77
--- NOTE | 2016-12-21 09:21 | NUR ---
ADMINISTERED AM MEDS AT THIS TIME. PT DENIES NEEDS.
--- NOTE | 2016-12-21 10:38 | NUR ---
CONTACTED DR. TORRES CONCERNING PT SCRATCHING AND DIGGING AT COCCYX. HE STATED TO ORDER NYSTATIN POWDER TO APPLY TO THE AREA.
--- NOTE | 2016-12-21 11:32 | NUR ---
PT LYING IN BED ON LEFT SIDE. ADMINISTERED FLORAJEN PO PER ORDERS. PT HALLUCINATING EVIDENCED BY ANSWERING QUESTIONS FROM SOURCES UNSEEN. PT ORIENTED TO SELF ONLY. ATTEMPT TO REORIENT PT FAILED.
--- NOTE | 2016-12-21 11:37 | NUR ---
CM REASSESSMENT NOTE: CM SPOKE WITH PATIENTS SON (MARY) ABOUT A SKILLED FACILTY FOR PATIENT. SON STATED [facility] HIS MOTHER HAD BEEN THERE BEFORE. REFERRAL HAS BEEN SENT TO [place]. THE RADHA FORM WAS VERBALLY ACKNOWLEDED BY SON MARY.
[2016-12-21 12:32] VITALS: BP 109/66
--- NOTE | 2016-12-21 12:40 | NUR ---
PT LYING IN BED ON LEFT SIDE. APPLIED NYSTATIN POWDER TO REDDENED AREA ON ABDOMEN AND COCCYX. OPEN AREAS NOTED WITHIN REDDENED AREAS RESEMBLING TEARS. HEART SHAPED MEPILEX ON COCCYX FREE OF DRAINAGE. REMOVED SOILED DRESSING TO LLE. YELLOW DRAINAGE NOTED TO DRESSING. NUMEROUS OPEN AREAS NOTED TO LLE WITH YELLOW DRAINAGE. REMOVED SOILED BLUE PAD AND REPLACED WITH NEW CLEAN PAD AND LEFT AREA OPEN TO AIR. NOTIFIED WOUND CARE NURSE CONCERNING DRESSING CHANGES. REPOSITIONED PT TO BACK, SAT PT UP IN BED TO EAT LUNCH. ASSISTED PT WITH LUNCH. PT DENIED OTHER NEEDS. BED LOW. PHONE AND CALL LIGHT IN REACH. SIDE RAILS UP X2. BED ALARMS TURNED BACK ON.
--- NOTE | 2016-12-21 13:18 | NUR ---
NUTRITION MONITORING & EVAL CHART REVIEWED. PT VISIT. A LITTE BETTER PO INTAKE. PT DOES NOT LIKE ENSURE. RD FOLLOWING
--- NOTE | 2016-12-21 14:10 | NUR ---
PT LYING IN BED RESTING WITH EYES CLOSED, PT AROUSED EASILY. DRESSING CHANGE DONE PER CLAUDINE ONEAL. CLEANSED WOUNDS ON LLE AND PATTED DRY. APPLIED MAXORB AG TO WOUND BEDS, COVERED WITH 4X4 AND ABDOMINAL PAD AND SECURED LOOSELY WITH KERLIX. PT TOLERATED WELL. DENIES NEEDS AT THIS TIME. BED LOW. PHONE AND CALL LIGHT IN REACH. SIDE RAILS UP X2.
--- NOTE | 2016-12-21 15:21 | NUR ---
PT RESTING QUIETLY WITH EYES CLOSED, NO ACUTE DISTRESS NOTED AT THIS TIME. RESPIRATIONS EVEN AND NON-LABORED.
[2016-12-21 16:08] VITALS: BP 150/66
--- NOTE | 2016-12-21 17:05 | NUR ---
PTS FAMILY MEMBER AT BEDSIDE. NO NEEDS NOTED AT THIS TIME.
--- NOTE | 2016-12-21 17:55 | NUR ---
ATTEMPTED TO ADMINISTER NORCO PO FOR PAIN, PT REFUSES TO TAKE MEDICATION. PT BELIEVES CALL LIGHT IS TELEPHONE AND IS TALKING INTO IT, ALSO HAS INCREASING AGITATION. PT REQUESTED CLAUDINE EVANS AND I LEAVE ROOM. SON AT BEDSIDE. BED LOW. PHONE AND CALL LIGHT IN REACH. SIDE RAILS UP X2.
--- NOTE | 2016-12-21 18:58 | NUR ---
CLAUDINE RUDOLPH ADMINISTERED HALDOL IVP PER ORDERS FOR AGITATION. PT VERY COMBATIVE.
[2016-12-21 19:00] VITALS: BP 132/102
--- NOTE | 2016-12-22 03:48 | NUR ---
PT IN BED WITH NO DISTRESS NOTED. RESPIRATIONS WITH EASE AND UNLABORED. SIDE RAILS ARE UP X 2. BED IS IN LOWEST POSITION. CALL LIGHT IS WITHIN REACH.
[2016-12-22 04:00] VITALS: BP 98/57
--- NOTE | 2016-12-22 07:00 | NUR ---
REPORT RECEIVED FROM GLYCERIN OPERATOR NURSE. CALL LIGHT IN REACH.
--- NOTE | 2016-12-22 07:07 | OP ---
PATIENT NAME: ARTEMIO RICH MEDICAL RECORD: [id number] :29 LOCATION:[id number] ADMISSION DATE:12/12/16 SURGEON: IRVING RANGEL MD DATE OF OPERATION: 12/16/2016 PREOPERATIVE DIAGNOSES: 1. Comminuted proximal tibia fracture. 2. Severe knee degenerative joint disease. 3. Residuals of a compartment syndrome. POSTOPERATIVE DIAGNOSES: 1. Comminuted proximal tibia fracture. 2. Severe knee degenerative joint disease. 3. Residuals of a compartment syndrome. PROCEDURE PERFORMED: Right AKA. SURGEON: John Rangel MD ANESTHESIA: General with a block for postop pain. CONDITION: The patient tolerated the procedure well, was transferred to the recovery room in stable condition at termination of the procedure. INDICATIONS: This is an 86-year-old female that came in several days ago, who had very severe comminuted fracture. She is on Coumadin. She was initially brought to the operating room with a bicondylar severely knee proximal tibia fracture and a compartment syndrome. She has since been oozing, really did not feel like there was very good prognosis for this, discussed this with her son. Elected after this discussion to go ahead and proceed with an AKA. We discussed risks, benefits, and alternatives. She understood and wished to proceed. OPERATIVE REPORT: The patient was taken to the operating room and placed in supine position. General anesthesia was obtained. She had been given a block in the preop holding area. In the operating room, the external fixator frame was removed. Her right leg was prepped and draped in a normal fashion. I then made an incision with a flap medially, pulling the adductors laterally. This was taken down, taken through the bone of the femur, the artery was identified and the vein and this was tied off with a double tie. I did cut the nerve back. Once this was accomplished, I then copiously irrigated, I then closed the fascial layer, bringing fascia of the adductors across the femur to the lateral side of the leg. Once this was accomplished, I closed with 2-0 Vicryl, then wilfrido. She was placed in soft dressing. She was awakened and transferred to the recovery room in stable condition having tolerated the procedure well. TRANSINT:[id number] Voice Confirmation ID: [id number] DOCUMENT ID: [id number] OPERATIVE REPORT [id number] ARTEMIO RICH, IRVING PHILLIPS MD at 0707 CC: [id number] DICTATION DATE: 12/16/16812 DEPUTY CONTROLLER: 12/16/16 0906 ADM IN [place] [id number] [place] [id number]
--- NOTE | 2016-12-22 08:05 | NUR ---
ASSESSMENT COMPLETED. NORCO PO WITH AM MEDS ADMINISTERED. CONFUSED SO BED ALARM TURNED ON. CALL LIGHT IN REACH. WILL CONTINUE WITH PLAN OF CARE.
[2016-12-22 08:15] VITALS: BP 91/57
--- NOTE | 2016-12-22 09:30 | NUR ---
PATIENT AWAKE, ALERT AND CONFUSED. ORIENTED TO SELF ONLY. PATIENT IS FLIPPING THROUGH THE NEWS PAPER. POINTED AT THE WINDOW AND STATED "THAT LADY IS READY TO GO." BED IN LOWEST POSITION, CALL LIGHT IN REACH. BED RAILS UP X'S 2.
--- NOTE | 2016-12-22 10:03 | NUR ---
IV TUBING CHANGED PER HOSPITAL POLICY. UNABLE TO PUT ON SCDs D/T RIGHT AKA AND LLE WITH WEEPING EDEMA.
--- NOTE | 2016-12-22 11:18 | NUR ---
SIS AND LAUREN PO. DRSG TO LLE CHANGED PER ORDER. CALL LIGHT IN REACH.
[2016-12-22 12:30] VITALS: BP 118/58
[2016-12-22] MEDS ORDERED: HYDROCODONE-APA1 TAB PO (12:48)
--- NOTE | 2016-12-22 13:28 | NUR ---
STRANGE CATH DC'D WITH TIP INTACT. IV DC'D WITH TIP INTACT.
--- NOTE | 2016-12-22 13:43 | NUR ---
REPORT CALLED TO TELMA COHEN, AT [facility].
--- NOTE | 2016-12-22 13:49 | NUR ---
CM REASSESSMENT NOTE: PATIENT HAS BEEN ACCEPTED TO [facility]. PATIENT WILL DISCHARGE TODAY BY AMBULANCE TO A SKILLED BED. PATIENTS SON HAS BEEN NOTIFIED.
--- NOTE | 2016-12-22 14:34 | NUR ---
LAUREN VELASCO FOR AMBULANCE RIDE PER HALF-WAY REQUEST. DC'D TO AMBULANCE VIA [facility].
== END 2016-12-22 14:34 | DRG 475 ==
LOC: D.ER 12:14 → D.MS 14:45 → D.SDCHOLD 12-15 15:36 → D.MS 12-22 14:34
PROVIDERS: Emergency Medicine; Family Medicine; Orthopaedic Surgery Sports Medicine; Physician Assistant; ADMIT Family Medicine
PROC: 0KNS0ZZ Release Right Lower Leg Muscle, Open Approach (ICD-10-PCS; principal; 2016-12-13 08:30)
PROC: 0QSG35Z Reposition Right Tibia with External Fixation Device, Percutaneous Approach (ICD-10-PCS; principal; 2016-12-13 08:30)
PROC: 0Y670ZZ Detachment at Right Femoral Region, Open Approach (ICD-10-PCS; 2016-12-16)
DX: S82.141A Displaced bicondylar fracture of right tibia, initial encounter for closed fracture (principal); T79.A22A Traumatic compartment syndrome of left lower extremity, initial encounter; D62 Acute posthemorrhagic anemia; E87.1 Hypo-osmolality and hyponatremia; N39.0 Urinary tract infection, site not specified; W19.XXXA Unspecified fall, initial encounter; I73.9 Peripheral vascular disease, unspecified; I83.003 Varicose veins of unspecified lower extremity with ulcer of ankle; Z74.01 Bed confinement status; I48.91 Unspecified atrial fibrillation